=== PATIENT | male | born 1950 | race Caucasian/White ===

== ENCOUNTER 2016-10-27 11:59 | Outpatient (CLI) | payer MEDICARE, MEDICAID ==
[2016-10-27 17:42] LABS: BILIRUBIN,URINE NEGATIVE (NEGATIVE); PH,URINE 7.5 PH (5.0-7.5)
[2016-10-27 17:59] LABS: UR CULTURE IF IND INDICATED; WBC,URINE >25 /HPF (0-3)
== END 2016-10-27 12:00 ==
LOC: LAB.R 11:59
PROVIDERS: ATTEND Nurse Practitioner Family
DX: N10 Acute pyelonephritis (principal)
CPT/HCPCS: 81001; 87077; 87086

== ENCOUNTER 2017-01-13 09:03 | Outpatient (CLI) | payer MEDICARE, MEDICAID ==
--- NOTE | 2017-01-13 12:03 | CT Report ---
EXAM CT LUNG SCREEN EXAM DATE: 01/13/2017 10:21 AM. HISTORY: 66-year-old patient with greater than 02-vijf-cedl smoking history, quit in 2007. COMPARISON: Chest CT 01/05/2016. TECHNIQUE: CT examination of the entire thorax without contrast was performed using low-dose techniqu e. Thin section coronal, axial, sagittal and MIP axial images were obtained. In accordance with CT protocol optimization, one or more of the following dose reduction techniques w ere utilized for this exam: automated exposure control, adjustment of mA and/or KV based on patient s ize, or use of iterative reconstructive technique. FINDINGS: Nodules: Right upper lobe: Interval 2 mm solid (34/4). Right middle lobe: None. Right lower lobe: None. Left upper lobe: None. Left lower lobe: None. Emphysema: Minimal. Pleura: Unremarkable. Thoracic Aorta: No aneurysm. Mediastinum: No mass or adenopathy. Normal heart size without pericardial effusion. Coronary Calcifications: Moderately severe. Other Findings: Stable mild bronchial wall thickening and mild bilateral lower lobe cylindrical bronc hiectasis. Paraspinous scarring right lower lobe. IMPRESSION: Lung-RADS ASSESSMENT CATEGORY: 2 - Benign appearance or behavior. Probability of malignancy: Less diya n 1%. RECOMMENDATION: Continue annual screening with LDCT per LungRADS guidelines. [facility] Referring Provider Line: [phone] SITE ID: [id number]
== END 2017-01-13 09:04 | disposition home or self-care (01) ==
LOC: DI 09:03
PROVIDERS: ATTEND Nurse Practitioner Family
DX: Z12.2 Encounter for screening for malignant neoplasm of respiratory organs (principal); Z87.891 Personal history of nicotine dependence

== ENCOUNTER 2017-01-24 07:51 | Outpatient (CLI) | payer MEDICARE, MEDICAID ==
[2017-01-24 12:28] LABS: PSA FREE 0.26 ng/mL (0.16-2.81); PSA TOTAL 2.45 ng/mL (0.000-2.000)
== END 2017-01-24 07:52 | disposition home or self-care (01) ==
LOC: LAB.F 07:51
PROVIDERS: ATTEND Family Medicine
DX: N40.0 Benign prostatic hyperplasia without lower urinary tract symptoms (principal)
CPT/HCPCS: 36415; 84154

== ENCOUNTER 2017-09-30 08:34 | Outpatient (CLI) | payer MEDICARE, MEDICAID ==
--- NOTE | 2017-09-30 11:47 | MRI Report ---
EXAM: RIGHT ANKLE/HINDFOOT MRI WITHOUT CONTRAST EXAM DATE: 09/30/2017 09:32 AM. CLINICAL HISTORY: Chronic right ankle pain. COMPARISON: None. TECHNIQUE: Multiplanar, multisequence T1-weighted and fluid-sensitive sequences of the ankle/hindfoot without contrast. Other: None. FINDINGS: Bones: No fractures or subluxations. No marrow edema. No bone lesions. Articular Cartilage: Unremarkable. Ligaments: The tibiofibular ligaments appear intact. The anterior talofibular and calcaneofibular lig aments appear thinned suggesting prior high-grade partial-thickness tear. The deep and superficial de ltoid and spring ligaments are intact. Anterior Tendons: The tibialis anterior, extensor hallucis longus, and extensor digitorum longus tend ons are unremarkable. Medial Tendons: The tibialis posterior, flexor digitorum longus, and flexor hallucis longus tendons a re unremarkable. Lateral Tendons: The peroneus brevis and longus are unremarkable. Achilles Tendon: The Achilles tendon is unremarkable. Musculature: No edema or fatty atrophy. Other: There is a small ankle joint effusion. The contents of the sinus tarsi and tarsal tunnel are u nremarkable. No plantar fasciitis. There is a 1 cm diameter cyst dorsal to the first naviculocuneifor m joint. IMPRESSION: 1. Small ankle joint effusion. 2. No visible fracture. 3. Probable prior partial-thickness tears of the anterior talofibular and calcaneofibular ligaments. 4. Small cyst dorsal to the first naviculocuneiform joint. [facility] MUSCULOSKELETAL RADIOLOGY SECTION Referring Provider Line: [phone] SITE ID: [id number]
== END 2017-09-30 08:35 | disposition home or self-care (01) ==
LOC: DI 08:34
PROVIDERS: ATTEND Podiatrist
DX: M25.571 Pain in right ankle and joints of right foot (principal); M25.471 Effusion, right ankle; M25.871 Other specified joint disorders, right ankle and foot

== ENCOUNTER 2018-10-13 11:35 | Outpatient (CLI) | payer MEDICARE, MEDICAID ==
[2018-10-13 17:33] LABS: CALCIUM 9.2 mg/dL (8.5-10.3); CREATININE 0.9 mg/dL (0.6-1.2)
== END 2018-10-13 11:36 | disposition home or self-care (01) ==
LOC: LAB.F 11:35
PROVIDERS: ATTEND Internal Medicine
DX: M54.16 Radiculopathy, lumbar region (principal)
CPT/HCPCS: 36415; 80048

== ENCOUNTER 2018-10-23 07:47 | Outpatient (CLI) | payer MEDICARE, MEDICAID ==
[2018-10-23] MEDS ORDERED: GADOBUTROL 15 MMOL/15 ML VIAL ONE (08:47)
[2018-10-23] MEDS ORDERED: GADOBUTROL 15 MMOL/15 ML VIAL IV ONE ×2 (08:57)
--- NOTE | 2018-10-23 18:18 | MRI Report ---
Reason: LUMBAR RADICULOPATHY,RIGHT Procedure Date: 10/23/2018 Accession Number: [id number] / [id number] Procedure: MRI - Lumbar Spine W/WO CPT Code: FULL RESULT: EXAM: MRI LUMBAR SPINE WITHOUT AND WITH CONTRAST EXAM DATE: 10/23/2018 09:05 AM. CLINICAL HISTORY: Lumbar radiculopathy, right. COMPARISONS: None. TECHNIQUE: Multiplanar, multisequence T1-weighted and fluid-sensitive sequences of the lumbar spine from T12 to S1 before and after administration of intravenous contrast. Other: None. IV contrast: 12 cc Gadavist. FINDINGS: Numbering assumes 5 [id number]-[id number] lumbar type vertebral bodies. No suspicious marrow replacement is identified in the lumbar vertebral bodies. No abnormal signal or enhancement is seen in the conus medullaris. No abnormal enhancement is seen in the lumbar disk spaces. Chronic vertebral body height loss is present anteriorly at T12 and L1 without marrow edema. Congenitally shallow central canal is noted. Slight dorsal epidural lipomatosis is present. L1-L2: No posterior disk protrusion. L2-L3: A minimal posterior disk protrusion is seen. There is a shallow foraminal protrusion bilaterally much greater on the left relative to the right. Mild left foraminal stenosis is present. There is right foraminal narrowing. Superior lateral recess stenosis is present. Central canal measures 7 mm. L3-L4: A posterolateral and proximal foraminal protrusion is seen bilaterally, greater on the left relative to the right. Mild left foraminal stenosis. Right foraminal narrowing is seen. Superior lateral recess stenosis is seen bilaterally. Central canal measures 7 mm. L4-L5: No posterior disk protrusion. No foraminal stenosis. Superior lateral recess stenosis is seen bilaterally. There is relative central canal narrowing without overt central canal stenosis. L5-S1: No posterior disk protrusion. No stenosis. Facet/ligamentum flavum hypertrophy is seen throughout the lumbar spine, greatest in the mid and upper lumbar spine. IMPRESSION: 1. 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 2. Facet/ligamentum flavum hypertrophy and degenerative disk disease results in mild to moderate central canal stenosis at L2-L3 and at L3-L4. There is bilateral superior lateral recess stenosis at these levels. 3. Superior lateral recess stenosis is seen at L4-L5. 4. Foraminal stenosis is seen on the left at L2-L3 and L3-L4. Comment: The following findings are so common in adults without low back pain that while we report their presence, they must be interpreted with caution and in the context of the clinical situation. (Reference Poneck et al, Spine 2001) Prevalence of findings in patients without low back pain: Disk degeneration (any evidence): 92% Disk desiccation/T2 signal loss: 83% Disk height loss: 56% Disk bulge: 64% Disk protrusion: 32% Annular tear/high intensity zone: 38% [facility]
== END 2018-10-23 07:48 | disposition home or self-care (01) ==
LOC: DI 07:47
PROVIDERS: ATTEND Internal Medicine
DX: M51.36 Other intervertebral disc degeneration, lumbar region (principal); M48.061 Spinal stenosis, lumbar region without neurogenic claudication; M47.816 Spondylosis without myelopathy or radiculopathy, lumbar region; M51.26 Other intervertebral disc displacement, lumbar region
CPT/HCPCS: 72158; A9585

== ENCOUNTER 2019-02-13 07:00 | Outpatient (CLI) | payer MEDICARE, MEDICAID | END 2019-02-13 23:59 | disposition home or self-care (01) | LOC: LAB.R 07:00 | PROVIDERS: ATTEND Registered Nurse | DX: N30.90 Cystitis, unspecified without hematuria (principal) | CPT/HCPCS: 87086; 87181 ==

== ENCOUNTER 2019-02-16 10:52 | Emergency (ER) | payer MEDICARE, MEDICAID ==
[2019-02-16 11:51] LABS: BASOPHILS # (AUTO) 0.1 10^3/uL (0.0-0.1); BASOPHILS % (AUTO) 0.6 %; EOSINOPHILS # (AUTO) 0.4 10^3/uL (0.0-0.7); EOSINOPHILS % (AUTO) 5.2 %; HGB - HEMOGLOBIN 14.7 g/dL (14.0-18.0); LYMPHOCYTES # (AUTO) 1.2 10^3/uL (1.5-3.5); LYMPHOCYTES % (AUTO) 14.7 %; MEAN CORPUSCULAR HEMOGLOBIN 29.7 pg (27.0-31.0); MEAN CORPUSCULAR VOLUME 92.9 fL (80.0-94.0); MEAN PLATELET VOLUME 9.6 fL (7.4-11.4); MONOCYTES # (AUTO) 0.8 10^3/uL (0.0-1.0); MONOCYTES % (AUTO) 9.4 %; NEUTROPHILS # (AUTO) 5.6 10^3/uL (1.5-6.6); NEUTROPHILS % (AUTO) 69.4 %; PLT - PLATELET COUNT 264 10^3/uL (130-450); RED BLOOD COUNT 4.95 10^6/uL (4.70-6.10); RED CELL DISTRIBUTION WIDTH 11.9 % (12.0-15.0); WHITE BLOOD COUNT 8.1 x10^3/uL (4.8-10.8)
[2019-02-16 12:01] LABS: BILIRUBIN,URINE NEGATIVE (NEGATIVE); GLUCOSE, URINE (UA) NEGATIVE (NEGATIVE); KETONES,URINE (UA) NEGATIVE (NEGATIVE); LEUKOCYTE ESTERASE, URINE NEGATIVE (NEGATIVE); NITRITE,URINE POSITIVE (NEGATIVE); OCCULT BLOOD,URINE NEGATIVE (NEGATIVE); PROTEIN,URINE NEGATIVE (NEGATIVE); UROBILINOGEN,URINE 0.2 (NORMAL) E.U./dL (NORMAL)
[2019-02-16 12:07] LABS: ALBUMIN/GLOBULIN RATIO 1.1 (1.0-2.2); BILIRUBIN,TOTAL 0.8 mg/dL (0.2-1.0); CALCIUM 9.9 mg/dL (8.5-10.3); CREATININE 1.3 mg/dL (0.6-1.2); TOTAL PROTEIN 7.6 g/dL (6.7-8.2)
[2019-02-16 12:10] LABS: CLARITY,URINE CLEAR (CLEAR)
[2019-02-16 12:17] LABS: BACTERIA,URINE Rare /HPF (None Seen); RBC,URINE 0-5 /HPF (0-5); SQUAMOUS EPITHELIAL CELL,UR RARE Squamous (<= Few)
--- NOTE | 2019-02-16 13:45 | ED Physician Documentation ---
History of Present Illness - Stated complaint Stated Complaint: LOW BACK PX - Chief complaint Chief Complaint: Abd Pain - Additonal information Additional information: This is a 68-year-old male who presents with inability to urinate. Patient states that he was diagnosed with a urinary tract infection and was started on Bactrim around a week ago, ever he has had some difficulty urinating which is worsened over the last 3 days. He states that he is only able to be a dribble for the last 1.5 days. He now feels like his abdomen is distended and he is quite uncomfortable. No fever or chills. He has never needed a catheter in the past, has not obviously been diagnosed with prostate issues but he is on tamsulosin. Review of Systems Constitutional: denies: Fever Cardiac: denies: Chest pain / pressure GI: reports: Abdominal Pain : reports: Dysuria Skin: denies: Rash Neurologic: denies: Generalized weakness Immunocompromised: denies: Immunocompromised PD PAST MEDICAL HISTORY - Past Medical History Cardiovascular: Coronary artery disease - Past Surgical History Past Surgical History: Yes Cardiovascular: Coronary stent Neuro: Craniotomy - Present Medications Home Medications: Ambulatory Orders Medication Instructions Recorded Confirmed Ibuprofen [Motrin] 800 mg PO Q8H PRN #30 tablet 11/08/12 Metoprolol Tartrate [Lopressor] 25 mg PO BID #60 tablet 11/08/12 Ciprofloxacin HCl [Cipro] 500 mg PO BID #14 tablet 02/16/19 Phenazopyridine HCl [Pyridium] 200 mg PO TID PRN #6 tablet 02/16/19 - Allergies Allergies/Adverse Reactions: Allergies Allergy/AdvReac Type Severity Reaction Status Date / Time Penicillins Allergy Severe Respiratory Verified 02/16/19 10:57 - Social History Does the pt smoke?: No Smoking Status: Never smoker Does the pt drink ETOH?: Yes Does the pt have substance abuse?: No PD ED PE NORMAL - Vitals Vital signs reviewed: Yes - General General: Alert and oriented X 3, No acute distress - HEENT HEENT: PERRL - Neck Neck: Supple, no meningeal sign - Cardiac Cardiac: RRR - Respiratory Respiratory: Clear bilaterally - Abdomen Abdomen: Soft, Other (Suprapubic distention, tender to palpation in this area, no upper quadrant distention.) - Male Male : Other (Normal-appearing circumcised penis, no tenderness or lesions, scrotum is nontender and normal in appearance.) - Derm Derm: Warm and dry - Extremities Extremities: No deformity - Neuro Neuro: Alert and oriented X 3 - Psych Psych: Normal mood, Normal affect Results - Vitals Vitals: Vital Signs - 24 hr 02/16/19 02/16/19 10:55 13:47 Temperature 36.4 C L 36.7 C Heart Rate 85 87 Respiratory 20 17 Rate Blood Pressure 98/51 L 118/66 O2 Saturation 97 100 Oxygen O2 Source Room air - Labs Labs: Laboratory Tests 02/16/19 02/16/19 02/16/19 11:41 11:45 11:45 WBC 8.1 RBC 4.95 Hgb 14.7 Hct 46.0 MCV 92.9 MCH 29.7 MCHC 32.0 RDW 11.9 L Plt Count 264 MPV 9.6 Neut # (Auto) 5.6 Lymph # (Auto) 1.2 L [place] # (Auto) 0.8 Eos # (Auto) 0.4 Baso # (Auto) 0.1 Absolute Nucleated RBC 0.00 Nucleated RBC % 0.0 Sodium 137 Potassium 4.8 Chloride 99 L Carbon Dioxide 29 Anion Gap 9.0 BUN 15 Creatinine 1.3 H Estimated GFR (MDRD) 55 L Glucose 131 H Calcium 9.9 Total Bilirubin 0.8 AST 23 ALT 31 Alkaline Phosphatase 64 Total Protein 7.6 Albumin 4.0 Globulin 3.6 Albumin/Globulin Ratio 1.1 Lipase 27 Urine Color YELLOW Urine Clarity CLEAR Urine pH 6.0 Ur Specific [place] 1.010 Urine Protein NEGATIVE Urine Glucose (UA) NEGATIVE Urine Ketones NEGATIVE Urine Occult Blood NEGATIVE Urine Nitrite POSITIVE H Urine Bilirubin NEGATIVE Urine Urobilinogen 0.2 (NORMAL) Ur Leukocyte Esterase NEGATIVE Urine RBC 0-5 Urine WBC 4-5 Ur Squamous Epith Cells RARE Squamous Urine Bacteria Rare Ur Microscopic Review INDICATED Urine Culture Comments INDICATED PD MEDICAL DECISION MAKING - ED course Complexity details: considered differential (UTI, urinary retention, pyelonephritis) ED course: On exam patient has suprapubic fullness and some suprapubic discomfort, bladder scan shows greater than 900 ml. Given patient inability urinate, he appears to have acute urinary retention, catheter was placed with return of over 1 L of rosetta urine. This urine is nitrite positive, he is on Bactrim, and this is likely an appropriate choice, Likely the lack of resolution of his symptoms are secondary to his retention, but patient felt strongly that he wanted to change in antibiotics as he felt that it was ineffective. He has anaphylactic penicillin allergy, I discussed options with him, and we elected to start ciprofloxacin After discussing the black box warnings with him. I also discussed with him that his creatinine is mildly elevated And he will need to have this rechecked with his physician. Patient is feeling well after catheter placement, and his abdomen is benign, I discussed that he is to follow-up in a week with his primary care provider or urologist for a voiding trial, that he should take his antibiotic until that time, and he should continue to take his tamsulosin. I discussed return precautions with the patient including abdominal pain, fever, or other concerning symptoms, he agreed to this plan and was discharged home Departure - Departure Disposition: 01 Home, Self Care Clinical Impression: Acute urinary retention Condition: Good Instructions: ED Retention Urinary Male, ED UTI Cystitis Male Follow-Up: Dima Mata MD [Primary Care Provider] - Within 1 week Prescriptions: Ciprofloxacin HCl [Cipro] 500 mg PO BID #14 tablet Phenazopyridine HCl [Pyridium] 200 mg PO TID PRN #6 tablet PRN Reason: dysuria Comments: You were seen today because you cannot empty your bladder. You seem to have a urinary tract infection, you likely also have an enlarged prostate. Please continue taking your tamsulosin, and the antibiotic as prescribed. Please follow-up with your primary care provider within 1 week, or urologist. If you develop worsening symptoms or if you are unable to pass urine to the catheter return to the emergency department. Discharge Date/Time: 02/16/19 14:08
[2019-02-16 13:47] VITALS: BP 118/66
== END 2019-02-16 14:08 | disposition home or self-care (01) ==
LOC: ED 10:52
DX: R33.9 Retention of urine, unspecified (principal); N39.0 Urinary tract infection, site not specified; R79.89 Other specified abnormal findings of blood chemistry; Z88.0 Allergy status to penicillin; Z79.899 Other long term (current) drug therapy
CPT/HCPCS: 36415; 51702; 80053; 81001; 81003; 83690; 85025; 87086; 99283; 99284

== ENCOUNTER 2019-02-20 10:11 | Emergency (ER) | payer MEDICARE, MEDICAID ==
[2019-02-20 10:19] VITALS: BP 136/63
--- NOTE | 2019-02-22 15:28 | ED Physician Documentation ---
History of Present Illness - Stated complaint Stated Complaint: CATH REMOVAL - Chief complaint Chief Complaint: General - History obtained from History obtained from: Patient - History of Present Illness Timing: Today - Additonal information Additional information: 68 y/o male with catheter in place is requesting we remove his catheter Review of Systems Constitutional: denies: Fever Respiratory: denies: Cough GI: denies: Vomiting PD PAST MEDICAL HISTORY - Past Medical History Cardiovascular: Coronary artery disease - Past Surgical History Past Surgical History: Yes Cardiovascular: Coronary stent Neuro: Craniotomy - Present Medications Home Medications: Ambulatory Orders Medication Instructions Recorded Confirmed Ibuprofen [Motrin] 800 mg PO Q8H PRN #30 tablet 11/08/12 Metoprolol Tartrate [Lopressor] 25 mg PO BID #60 tablet 11/08/12 Ciprofloxacin HCl [Cipro] 500 mg PO BID #14 tablet 02/16/19 Phenazopyridine HCl [Pyridium] 200 mg PO TID PRN #6 tablet 02/16/19 - Allergies Allergies/Adverse Reactions: Allergies Allergy/AdvReac Type Severity Reaction Status Date / Time Penicillins Allergy Severe Respiratory Verified 02/16/19 10:57 - Social History Does the pt smoke?: No Smoking Status: Never smoker Does the pt drink ETOH?: Yes Does the pt have substance abuse?: No PD ED PE NORMAL - Vitals Vital signs reviewed: Yes (hypertensive ) - General General: Alert and oriented X 3, Well developed/nourished, Other (The patient appears uncomfortable and anxious) - HEENT HEENT: Atraumatic, PERRL, EOMI - Respiratory Respiratory: No respiratory distress - Derm Derm: Normal color, Warm and dry, No rash - Extremities Extremities: No deformity, No edema - Neuro Neuro: Alert and oriented X 3, humanities division chair 2-12 intact, No motor deficit, No sensory deficit, Normal speech Eye Opening: Spontaneous Motor: Obeys Commands Verbal: Oriented GCS Score: 15 - Psych Psych: Normal mood, Normal affect Results - Vitals Vitals: Oxygen O2 Source Room air PD MEDICAL DECISION MAKING - ED course Complexity details: considered differential, d/w patient ED course: 68-year-old male with a history of recent urinary retention presents to the emerge department wanting to have his catheter removed. We were able to accommodate him by removing the catheter and his anticipated course was to wait to urinate and the patient eloped from the emergency department. Departure - Departure Disposition: 01 Home, Self Care Clinical Impression: Encounter for [place] catheter removal Condition: Good Discharge Date/Time: 02/20/19 12:30
== END 2019-02-20 12:30 | disposition home or self-care (01) ==
LOC: ED 10:11
DX: Z46.6 Encounter for fitting and adjustment of urinary device (principal); Z53.20 Procedure and treatment not carried out because of patient's decision for unspecified reasons
CPT/HCPCS: 99282

== ENCOUNTER 2019-10-30 07:12 | Outpatient (CLI) | payer MEDICARE, MEDICAID ==
[2019-10-30 14:55] LABS: BASOPHILS # (AUTO) 0.1 10^3/uL (0.0-0.1); EOSINOPHILS # (AUTO) 0.4 10^3/uL (0.0-0.7); EOSINOPHILS % (AUTO) 5.9 %; HGB - HEMOGLOBIN 15.4 g/dL (14.0-18.0); LYMPHOCYTES # (AUTO) 1.8 10^3/uL (1.5-3.5); LYMPHOCYTES % (AUTO) 26.2 %; MEAN CORPUSCULAR HEMOGLOBIN 30.2 pg (27.0-31.0); MEAN CORPUSCULAR HGB CONC 31.6 g/dL (32.0-36.0); MEAN CORPUSCULAR VOLUME 95.7 fL (80.0-94.0); MEAN PLATELET VOLUME 10.7 fL (7.4-11.4); MONOCYTES # (AUTO) 0.7 10^3/uL (0.0-1.0); MONOCYTES % (AUTO) 10.7 %; NEUTROPHILS # (AUTO) 3.8 10^3/uL (1.5-6.6); NEUTROPHILS % (AUTO) 55.8 %; PLT - PLATELET COUNT 241 10^3/uL (130-450); RED CELL DISTRIBUTION WIDTH 12.1 % (12.0-15.0); WHITE BLOOD COUNT 6.8 x10^3/uL (4.8-10.8)
[2019-10-30 15:18] LABS: ALBUMIN 4.1 g/dL (3.2-5.5); ALBUMIN/GLOBULIN RATIO 1.4 (1.0-2.2); ALKALINE PHOSPHATASE 49 IU/L (42-121); ALT ALANINE AMINOTRANSFERASE 22 IU/L (10-60); AST ASPARTATE AMINOTRANSFERASE 20 IU/L (10-42); BILIRUBIN,TOTAL 0.8 mg/dL (0.2-1.0); BUN - BLOOD UREA NITROGEN 22 mg/dL (6-20); CALCIUM 9.5 mg/dL (8.5-10.3); CARBON DIOXIDE - CO2 30 mmol/L (21-32); CHLORIDE 107 mmol/L (101-111); CHOL/HDL RATIO 6.7 (<5.0); CHOLESTEROL 273 mg/dL; GLUCOSE 119 mg/dL (70-100); HDL CHOLESTEROL 41 mg/dL; LDL CHOLESTEROL,CALCULATED 200 mg/dL; LDL/HDL RATIO 4.9 (<3.6); SODIUM 140 mmol/L (135-145); TOTAL PROTEIN 7.1 g/dL (6.7-8.2); VLDL CHOLESTEROL 32 mg/dL
== END 2019-10-30 07:13 | disposition home or self-care (01) ==
LOC: LAB.S 07:12
PROVIDERS: ATTEND Registered Nurse
DX: K21.9 Gastro-esophageal reflux disease without esophagitis (principal); N40.1 Benign prostatic hyperplasia with lower urinary tract symptoms; N13.8 Other obstructive and reflux uropathy; I10 Essential (primary) hypertension; I25.10 Atherosclerotic heart disease of native coronary artery without angina pectoris
CPT/HCPCS: 36415; 80053; 80061; 83721; 84153; 84443; 85025

== ENCOUNTER 2020-07-05 09:05 | Outpatient (CLI) | payer MEDICARE, MEDICAID ==
[2020-07-05 15:02] LABS: BASOPHILS # (AUTO) 0.1 10^3/uL (0.0-0.1); BASOPHILS % (AUTO) 1.3 %; EOSINOPHILS # (AUTO) 0.4 10^3/uL (0.0-0.7); EOSINOPHILS % (AUTO) 5.3 %; HCT - HEMATOCRIT 47.3 % (42.0-52.0); HGB - HEMOGLOBIN 14.6 g/dL (14.0-18.0); LYMPHOCYTES # (AUTO) 1.8 10^3/uL (1.5-3.5); LYMPHOCYTES % (AUTO) 26.8 %; MEAN CORPUSCULAR HEMOGLOBIN 29.4 pg (27.0-31.0); MEAN CORPUSCULAR HGB CONC 30.9 g/dL (32.0-36.0); MEAN CORPUSCULAR VOLUME 95.4 fL (80.0-94.0); MEAN PLATELET VOLUME 11.1 fL (7.4-11.4); MONOCYTES # (AUTO) 0.7 10^3/uL (0.0-1.0); MONOCYTES % (AUTO) 10.7 %; NEUTROPHILS # (AUTO) 3.8 10^3/uL (1.5-6.6); NEUTROPHILS % (AUTO) 55.6 %; PLT - PLATELET COUNT 254 10^3/uL (130-450); RED BLOOD COUNT 4.96 10^6/uL (4.70-6.10); RED CELL DISTRIBUTION WIDTH 12.2 % (12.0-15.0); WHITE BLOOD COUNT 6.8 x10^3/uL (4.8-10.8)
[2020-07-05 15:30] LABS: ALBUMIN/GLOBULIN RATIO 1.2 (1.0-2.2); ALKALINE PHOSPHATASE 50 IU/L (42-121); ALT ALANINE AMINOTRANSFERASE 21 IU/L (10-60); AST ASPARTATE AMINOTRANSFERASE 17 IU/L (10-42); BILIRUBIN,TOTAL 0.7 mg/dL (0.2-1.0); BUN - BLOOD UREA NITROGEN 14 mg/dL (6-20); CALCIUM 9.3 mg/dL (8.5-10.3); CARBON DIOXIDE - CO2 30 mmol/L (21-32); CHLORIDE 100 mmol/L (101-111); CHOLESTEROL 258 mg/dL; GFR - MDRD 73 (>89); GLUCOSE 121 mg/dL (70-100); HDL CHOLESTEROL 43 mg/dL; LDL CHOLESTEROL,CALCULATED 182 mg/dL; LDL/HDL RATIO 4.2 (<3.6); POTASSIUM 4.1 mmol/L (3.5-5.0); SODIUM 138 mmol/L (135-145); TOTAL PROTEIN 7.4 g/dL (6.7-8.2); TRIGLYCERIDES 164 mg/dL; VLDL CHOLESTEROL 33 mg/dL
== END 2020-07-05 09:06 | disposition home or self-care (01) ==
LOC: LAB.S 09:05
PROVIDERS: ATTEND Internal Medicine
DX: I10 Essential (primary) hypertension (principal); E78.5 Hyperlipidemia, unspecified; Z12.5 Encounter for screening for malignant neoplasm of prostate
CPT/HCPCS: 36415; 80053; 80061; 85025; G0103; 83721; 84153

== ENCOUNTER 2020-07-07 14:56 | Outpatient (CLI) | payer MEDICARE, MEDICAID ==
--- NOTE | 2020-07-07 15:33 | XRAY Report ---
PROCEDURE: Lumbar Spine 2 View INDICATIONS: LUMBAR RADICULOPATHY,RIGHT TECHNIQUE: 2 views of the lumbar spine were acquired. COMPARISON: None. FINDINGS: Bones: 5 [id number] vertebrae are present. There is normal bony alignment. No vertebral body compression fractures. No suspicious bony lesions. Multilevel disc space narrowing and endplate ost eophyte formation. Facet hypertrophy throughout the mid and lower lumbar spine. Soft tissues: Overlying bowel gas pattern is normal. No suspicious soft tissue calcifications. IMPRESSION: Multilevel degenerative disc and facet disease. No acute fracture. No osseous lesion. If symptoms and/or clinical suspicion for pathology continue, further assessment with repeat plain film s, or advanced imaging (e.g., CT, MRI, or bone scan) is recommended for further assessment. Reviewed by: Kingsley Rendon MD on 07/07/2020 3:31 PM PDT Approved by: Kingsley Rendon MD on 07/07/2020 3:31 PM PDT Station ID: [id number]
--- NOTE | 2020-07-07 15:33 | XRAY Report ---
PROCEDURE: Thoracic Spine 2 View INDICATIONS: THORACIC BACK PAIN TECHNIQUE: 3 views of the thoracic spine were acquired. COMPARISON: None. FINDINGS: Bones: No fractures or dislocations. No suspicious bony lesions. Visualized ribs are intact. Multil evel disc space narrowing and endplate osteophyte formation, indicating degenerative disc disease. So ft tissues: No paravertebral stripe thickening. IMPRESSION: Multilevel degenerative disc disease. No acute fracture. No osseous lesion. If symptoms and/or clinic al suspicion for pathology continue, further assessment with repeat plain films, or advanced imaging (e.g., CT, MRI, or bone scan) is recommended for further assessment. Reviewed by: Kingsley Rendon MD on 07/07/2020 3:32 PM PDT Approved by: Kingsley Rendon MD on 07/07/2020 3:32 PM PDT Station ID: [id number]
== END 2020-07-07 14:57 | disposition home or self-care (01) ==
LOC: DI.S 14:56
PROVIDERS: ATTEND Internal Medicine
DX: M51.34 Other intervertebral disc degeneration, thoracic region (principal); M51.36 Other intervertebral disc degeneration, lumbar region; M47.816 Spondylosis without myelopathy or radiculopathy, lumbar region

== ENCOUNTER 2020-08-08 07:13 | Outpatient (CLI) | payer MEDICARE, MEDICAID ==
--- NOTE | 2020-08-08 11:58 | Ultrasound Report ---
PROCEDURE: Abdomen Complete INDICATIONS: ABDOMINAL PAIN TECHNIQUE: Real-time scanning was performed of the abdominal and retroperitoneal organs, with image documentatio n. COMPARISON: 01/13/[address] FINDINGS: Liver: Liver is enlarged at 19.3 cm craniocaudad in size and homogeneous in echotexture, diffusely h yperechoic consistent with fatty infiltration. There appears to be focal fatty sparing at the posteri or left hepatic lobe measuring up to. Gallbladder: Appears normal. Biliary ducts: Intrahepatic bile ducts are non-dilated. Extrahepatic bile duct caliber measures 4.0 mm. Normal is 6-7 mm or less in diameter, or 10 mm or less post-cholecystectomy. Pancreas: Visualized portions of the pancreas are sonographically normal. Spleen: Spleen is normal in size and homogeneous in echotexture. Kidneys: Kidneys are normal in size and echotexture. Right kidney measures 10.4 cm long; left kidne y measures 12.4 cm long. No hydronephrosis or right-sided nephrolithiasis. There is a 5 x 5 x 4 mm hyperechoic focus at the left kidney collecting system margin, nonobstructive. No solid masses. Aorta: Visualized aorta is normal in caliber at less than 3 cm. Iliacs: Proximal common iliac arteries are normal in caliber at less than 2.5 cm. IVC: Intrahepatic inferior vena cava is patent. Miscellaneous: No free abdominal fluid. IMPRESSION: Prominent fatty infiltration throughout the liver with focal sparing causing a region of reduced hepa tic echotexture as noted. 2 liver cyst, simple in appearance. No biliary distention found. Suspect 5 mm left kidney nonobstructing calculus as hyperechoic structure. Reviewed by: Joseph Ferrell MD on 08/08/2020 11:56 AM PDT Approved by: Joseph Ferrell MD on 08/08/2020 11:56 AM PDT Station ID: [id number]
== END 2020-08-08 07:14 | disposition home or self-care (01) ==
LOC: DI 07:13
PROVIDERS: ATTEND Internal Medicine
DX: K76.0 Fatty (change of) liver, not elsewhere classified (principal); K76.89 Other specified diseases of liver; R10.9 Unspecified abdominal pain

== ENCOUNTER 2020-09-24 14:42 | Outpatient (CLI) | payer MEDICARE, MEDICAID ==
[2020-09-24] MEDS ORDERED: IOVERSOL 320 100 ML VIAL IVP ONE (14:58)
[2020-09-24] MEDS ORDERED: IOPAMIDOL-300 50 ML VIAL ONE (14:58)
[2020-09-24 15:12] LABS: CREATININE 1.1 mg/dL (0.6-1.2)
[2020-09-24] MEDS: IOVERSOL 320 100 ML VIAL IVP ONE (21:28)
[2020-09-24] MEDS: IOPAMIDOL-300 50 ML VIAL PO ONE (21:29)
--- NOTE | 2020-09-25 09:00 | CT Report ---
PROCEDURE: Abdomen/Pelvis W INDICATIONS: ABDOMINAL PAIN, FATTY LIVER CONTRAST: IV CONTRAST: Optiray 320 ml: 100 PO CONTRAST: Isovue 300 ml50 TECHNIQUE: After the administration of IV and oral contrast, 5 mm thick sections acquired from the diaphragms to the symphysis. 5 mm thick coronal and sagittal reformats were acquired. For radiation dose reducti on, the following was used: automated exposure control, adjustment of mA and/or kV according to nicolasa ent size. COMPARISON: Ultrasound dated 08/08/2020. Chest CT dated 01/13/2017. FINDINGS: Image quality: Excellent. ABDOMEN: Lung bases: There is an incompletely visualized mass within the lateral segment right middle lobe pos teriorly measuring at least 47 mm, new compared to 01/13/2017. Heart size is normal. Solid organs: Liver and spleen are normal in size. There are a few indeterminate low-density foci wi thin the right and left hepatic lobe, largest of which is in the left hepatic lobe medial segment fermin suring 14 mm. Gallbladder is contracted and otherwise within normal limits Biliary system is non dil ated. Pancreas enhances normally. There is a new, 15 mm diameter nodule within the posterior aspect of the left adrenal gland. No right adrenal nodules. Kidneys demonstrate normal size and enhancemen t, without hydronephrosis. Peritoneum and bowel: Bowel loops demonstrate normal wall thickness and caliber. Diverticulosis of t he descending and sigmoid colon. No evidence of acute diverticulitis. Normal appendix. No free fluid or air. Nodes and vessels: No retroperitoneal or mesenteric adenopathy by size criteria. Aorta and inferior vena cava are normal in size. Miscellaneous: No ventral hernias. PELVIS: Genitourinary: Bladder wall thickness is normal. Miscellaneous: No inguinal hernias or adenopathy. Bones: No suspicious bony lesions. No vertebral body compression fractures. IMPRESSION: 1. New, malignant right middle lobe pulmonary mass. Initial further assessment with chest CT with int ravenous contrast is recommended. 2. 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 PET/CT examination is recommended for further assessment. 3. Indeterminate hepatic lesions. Liver protocol MRI with and without intravenous contrast is recomme nded for initial assessment. Reviewed by: Kingsley Rendon MD on 09/25/2020 8:59 AM PDT Approved by: Kingsley Rendon MD on 09/25/2020 8:59 AM PDT Station ID: [id number]
== END 2020-09-24 14:43 | disposition home or self-care (01) ==
LOC: LAB 14:42 → DI 14:43
PROVIDERS: ATTEND Internal Medicine
DX: C34.2 Malignant neoplasm of middle lobe, bronchus or lung (principal); E27.9 Disorder of adrenal gland, unspecified; K76.9 Liver disease, unspecified; I10 Essential (primary) hypertension
CPT/HCPCS: 36415; 74177; 82565; Q9967

== ENCOUNTER 2020-10-20 16:35 | Outpatient (CLI) | payer MEDICARE, MEDICAID | END 2020-10-20 16:36 | disposition home or self-care (01) | LOC: COV 16:35 | PROVIDERS: ATTEND Internal Medicine | DX: Z01.812 Encounter for preprocedural laboratory examination (principal); Z20.822 Contact with and (suspected) exposure to COVID-19 ==

== ENCOUNTER 2020-11-18 08:13 | Outpatient (CLI) | payer MEDICARE, MEDICAID ==
[~2020-11-18 08:13] MED LIST: GADOBUTROL 15 MMOL/15 ML VIAL ONE
--- NOTE | 2020-11-18 14:29 | MRI Report ---
PROCEDURE: Brain W/WO INDICATIONS: LUNG CA CONTRAST: IV CONTRAST: Optiray 320 ml: 11 TECHNIQUE: Noncontrast axial T1 spin echo, axial T2 fast spin echo, sagittal and axial FLAIR, coronal T2 fast sp in echo, axial gradient echo, axial diffusion and ADC through the brain. After the administration of contrast, axial and coronal T1 spin echo with fat saturation through the brain. COMPARISON: Partially degraded by motion artifact. FINDINGS: Image quality: Excellent. CSF spaces: Basal cisterns are patent. No extra-axial fluid collections. Ventricles are normal in size and shape. Brain: No midline shift. No intracranial bleeds or masses. Focal region of encephalomalacia involve s the right anterior frontal lobe. No abnormal intracranial enhancement. There is cerebral volume lo ss for age. There is periventricular white matter chronic small vessel ischemic change. The brainst em appears normal. Diffusion-weighted images demonstrate no acute ischemic insults. No chronic isch emic insults. Normal intravascular flow voids are present. Skull and face: Findings suggestive of prior right frontal craniotomy. Calvarial marrow is otherwise normal in signal. Orbits appear normal. Sinuses: Sinuses and mastoids appear clear. IMPRESSION: 1. Postsurgical sequelae. 2. No evidence of malignancy. Reviewed by: Kingsley Rendon MD on 11/18/2020 1:27 PM WILBER Approved by: Kingsley Rendon MD on 11/18/2020 1:27 PM [id number] Station ID: [id number]
[2020-11-18] MEDS ORDERED: GADOBUTROL 15 MMOL/15 ML VIAL IVP ONE (15:58)
== END 2020-11-18 08:14 | disposition home or self-care (01) ==
LOC: DI 08:13
PROVIDERS: ATTEND Internal Medicine Hematology & Oncology
DX: C34.2 Malignant neoplasm of middle lobe, bronchus or lung (principal)
CPT/HCPCS: 70553; A9585

== ENCOUNTER 2020-11-19 09:26 | Day surgery (SDC) | payer MEDICARE, MEDICAID ==
[~2020-11-19 09:26] MED LIST changes: +CLINDAMYCIN 900 MG/50 ML 50 ML IV ONE; -GADOBUTROL 15 MMOL/15 ML VIAL ONE
--- NOTE | 2020-11-19 09:35 | ANESTHESIA ---
Pre-Anesthesia VS, & Labs - Diagnosis small cell lung cancer, neuroendocrine tumor - Procedure port placement Height: 5 ft 8 in - NPO >8 hours Home Medications and Allergies Home Medications: Ambulatory Orders Ondansetron HCl [Zofran] 8 mg PO DAILY 11/14/20 Prochlorperazine [Compazine] 10 mg PO QPM 11/14/20 Aspirin [[place] Aspirin] 81 mg PO DAILY 11/03/20 Atorvastatin [Lipitor] 20 mg PO DAILY PM 11/03/20 Finasteride [Proscar] 5 mg PO DAILY 11/03/20 HYDROcod/ACETAM 5/325 [[place] 5/325] 1 - 2 tablet PO Q6H PRN 11/03/20 Lisinopril [Zestril] 40 mg PO DAILY 11/03/20 Naproxen [Naprosyn] 250 mg PO PRN PRN 11/03/20 Tamsulosin [Flomax] 1 cap PO UD 11/03/20 amLODIPine [Norvasc] 5 mg PO BID 11/03/20 Ondansetron HCl [Zofran] 8 mg PO DAILY 11/14/20 Prochlorperazine [Compazine] 10 mg PO QPM 11/14/20 Allergies/Adverse Reactions: Allergies Allergy/AdvReac Type Severity Reaction Status Date / Time Penicillins Allergy Severe Respiratory Verified 11/03/20 16:51 Anes History & Medical History - Anesthetic History Anesthesia Complications: reports: No previous complications - Medical History Cardiovascular: reports: Coronary artery disease Pulmonary: reports: Other (lung cancer) Gastrointestinal: reports: Colon polyps Urinary: reports: None Musculoskeletal: reports: Osteoarthritis, Chronic back pain Endocrine/Autoimmune: reports: Other (neuroendocrine tumor) Skin: reports: None Smoking Status: Former smoker History of Cancer?: Yes - Surgical History General: reports: Colonoscopy Cardiothoracic: reports: Coronary stent Neurologic: reports: Craniotomy Orthopedic: reports: Carpal Tunnel surgery Exam General: Alert Dental: WNL Mouth Opening: Greater than 4 Fingerbreadths Neck Mobility: Normal Mallampati classification: II Thyromental Distance: greater than 6 cm Respiratory: Lungs clear, Decreased breath sounds Cardiovascular: Regular rate, Normal S1, Normal S2 Plan Anesthesia Type: MAC Consent for Procedure(s) Verified and Reviewed: Yes Code Status: Attempt Resuscitation ASA classification: 3-Severe systemic disease Is this case an emergency?: No
[2020-11-19] MEDS ORDERED: LACTATED RINGERS 1,000 ML IV ONE ×2 (09:36→12:48)
[2020-11-19] MEDS ORDERED: BUPIVACAINE 0.25% PF 30 ML VIAL ONE (09:40)
[2020-11-19] MEDS ORDERED: LIDOCAINE 1% 50 ML MDV ONE (09:40)
[2020-11-19] MEDS ORDERED: fentaNYL 100 MCG/2 ML VIAL ONE (10:34)
[2020-11-19] MEDS ORDERED: PROPOFOL 200 MG/20 ML VIAL IVP ONE (10:35)
--- NOTE | 2020-11-19 11:16 | HISTORY & PHYSICAL EXAMINATION ---
Chief Complaint - Chief Complaint Chief Complaint: lung cancer History of Present Illness - History Obtained From Records Reviewed: yes History obtained from: pt Exam Limitations: none - History of Present Illness HPI Comment/Other: recently diagnosed with right lung cancer. no breathing problems History - Past Medical History Cardiovascular: reports: Coronary artery disease Respiratory: reports: Other (lung cancer) Endocrine/Autoimmune: reports: Other (neuroendocrine tumor) GI: reports: Colon polyps : reports: None HEENT: reports: None Psych: reports: None Musculoskeletal: reports: Osteoarthritis, Chronic back pain Derm: reports: None MRSA Hx?: No - Past Surgical History General: reports: Colonoscopy Ortho: reports: Carpal Tunnel surgery Cardiovascular: reports: Coronary stent Neuro: reports: Craniotomy Meds/Allgy - Home Medications Home Medications: Ambulatory Orders Medication Instructions Recorded Confirmed Metoprolol Tartrate [Lopressor] 25 mg PO BID #60 tablet 11/08/12 11/19/20 Aspirin [[place] Aspirin] 81 mg PO DAILY 11/03/20 11/19/20 Atorvastatin [Lipitor] 20 mg PO DAILY PM 11/03/20 11/19/20 Finasteride [Proscar] 5 mg PO DAILY 11/03/20 11/19/20 HYDROcod/ACETAM 5/325 [[place] 5/325] 1 - 2 tablet PO Q6H PRN 11/03/20 11/19/20 Lisinopril [Zestril] 40 mg PO DAILY 11/03/20 11/19/20 Naproxen [Naprosyn] 250 mg PO PRN PRN 11/03/20 11/19/20 Tamsulosin [Flomax] 1 cap PO UD 11/03/20 11/19/20 amLODIPine [Norvasc] 5 mg PO BID 11/03/20 11/19/20 Ondansetron HCl [Zofran] 8 mg PO DAILY 11/14/20 11/19/20 Prochlorperazine [Compazine] 10 mg PO QPM 11/14/20 11/19/20 - Allergies Allergies/Adverse Reactions: Allergies Allergy/AdvReac Type Severity Reaction Status Date / Time Penicillins Allergy Severe Respiratory Verified 11/03/20 16:51 Review of Systems - Other Findings Other Findings: 10 pt ros as above otherwise unremarkable Exam - Vital Signs Reviewed Vital Signs: Yes Vital Signs: Vital Signs x48h Temp Pulse Resp BP Pulse Ox 11/19/20 09:37 36 C L 78 18 127/59 L 94 - Physical Exam General Appearance: positive: Alert Eyes Bilateral: positive: PERRL, EOMI, No scleral icterus ENT: positive: No signs of dehydration Neck: positive: No JVD Respiratory: positive: No respiratory distress, Breath sounds nml Cardiovascular: positive: Regular rate & rhythm Abdomen: positive: Non-tender, No distention Neurologic/Psychiatric: positive: Oriented x3 Conclusion/Plan - Problem List (1) Lung cancer Conclusion/Plan: plan port placement. parq held and consent obtained
[2020-11-19] MEDS ORDERED: LIDOCAINE 1% 50 ML MDV SUBQ ONE ×2 (12:12)
[2020-11-19] MEDS ORDERED: BUPIVACAINE 0.25% PF 30 ML VIAL SUBQ ONE ×2 (12:13)
--- NOTE | 2020-11-19 12:47 | XRAY Report ---
PROCEDURE: OR Port-A-Cath INDICATIONS: PORT PLACEMENT TECHNIQUE: 2 intraoperative fluoroscopic images of the chest were obtained. COMPARISON: None. FINDINGS: Intraoperative fluoroscopic images of chest shows a left-sided central venous catheter placement. Exa ct position cannot be definitively determined based on the images given. Total fluoroscopy time is 1.4 seconds. IMPRESSION: Fluoroscopy guidance was provided intraoperatively for port placement. Reviewed by: Salvatore Dorsey MD on 11/19/2020 12:46 PM PDT Approved by: Salvatore Dorsey MD on 11/19/2020 12:46 PM PDT Station ID: [id number]
[2020-11-19] MEDS ORDERED: HYDROcod/ACETAM 5/325 MG TABLET PO PRN (12:53)
[2020-11-19] MEDS ORDERED: ONDANSETRON 4 MG/2 ML VIAL IVP PRN (12:56)
[2020-11-19] MEDS ORDERED: NALOXONE 0.4 MG/ML VIAL IVP PRN (12:56)
[2020-11-19] MEDS ORDERED: HYDROmorphone 0.5 MG/0.5 ML SYRINGE IVP PRN (12:56)
[2020-11-19] MEDS ORDERED: fentaNYL 100 MCG/2 ML VIAL IVP PRN (12:56)
[2020-11-19] MEDS ORDERED: MORPHINE 2 MG/ML CARPUJECT IVP PRN (12:56)
[2020-11-19] MEDS ORDERED: ePHEDrine 50 MG/ML VIAL IVP PRN (12:56)
[2020-11-19] MEDS ORDERED: ATROPINE ABBOJECT 1 MG/10 ML SYRINGE IVP PRN (12:56)
--- NOTE | 2020-11-19 12:57 | OPERATIVE REPORT ---
Operative Report - General Procedure Date: 11/19/20 Planned Procedure: left subclavian power port placement Pre-Op Diagnosis: lung cancer Procedure Performed: left subclavian power port placement fluoroscopic guidance Post Op Diagnosis: lung cancer - Procedure Note Primary Surgeon: morelia ferrara Anesthesia Technique: General LMA Pathology: none Estimated Blood Loss (mL): 3 Drain/Tube Type: Other (none) Indications: need for chemotherapy Findings: good flush and flow. tip and lower svc Complications: none - Other Other Information/Narrative: The patient was properly identified brought to the operating room and placed in supine position. Monitored anesthesia care was given as well as IV sedation. A towel roll was placed under the upper back. The patient was prepped and draped in a sterile fashion and given preoperative antibiotics. Local anesthetic was given. The left subclavian vein was easily accessed first pass with a needle. A subcutaneous pocket on the left upper chest was created measuring approximately 2-1/2 cm. Portacatheter tubing was then placed subcutaneous up to the venous access point. The portacatheter tubing was then easily placed with the use of a dilator peel-away sheath. The tubing was aspirated and flushed with saline. Under fluoroscopic guidance the tubing was pulled back to the junction of the atrium and the superior vena cava. The portacatheter aspirated and flushed easily assuring good position. The portacatheter was then cut to size and further assembled. The port was secured to subcutaneous tissue with 2 interrupted 4-0 Prolene sutures. The port again was aspirated and flushed now with heparin. Buried interrupted subdermal 3-0 Vicryl sutures were then placed. Skin was closed with buried interrupted and running 4-0 Monocryl subcuticular suture. Dressing was applied. The patient tolerated the procedure well was awakened and brought to recovery in good condition.
[2020-11-19] MEDS ORDERED: LACTATED RINGERS 1,000 ML IV SCH (13:00)
[2020-11-19] MEDS ORDERED: ONDANSETRON 4 MG/2 ML VIAL ONE (13:03)
--- NOTE | 2020-11-19 13:40 | ANESTHESIA POST OP EVALUATION ---
Anesthesia Post Eval - Post Anesthesia Eval Vitals: Last Vital Signs Temp 36.4 C L 11/19/20 13:15 Pulse 79 11/19/20 13:15 Resp 12 11/19/20 13:15 BP 105/45 L 11/19/20 13:15 Pulse Ox 97 11/19/20 13:15 CV Function Including HR & BP: Stable Pain Control: Satisfactory Nausea & Vomiting: Negative Mental Status: Baseline Respiratory Status: Airway Patent Hydration Status: Satisfactory Anesthesia Complications: None
[2020-11-19 13:45] VITALS: BP 110/65
== END 2020-11-19 09:27 | disposition home or self-care (01) ==
LOC: SDS 09:26
PROVIDERS: ATTEND Surgery
DX: C34.91 Malignant neoplasm of unspecified part of right bronchus or lung (principal); C7A.8 Other malignant neuroendocrine tumors; I25.10 Atherosclerotic heart disease of native coronary artery without angina pectoris; Z87.891 Personal history of nicotine dependence
CPT/HCPCS: 36561; C1788; J7120

== ENCOUNTER 2021-04-02 08:00 | Outpatient (CLI) | payer MEDICARE, MEDICAID ==
--- NOTE | 2021-04-02 15:18 | XRAY Report ---
PROCEDURE: Chest 2 View X-Ray INDICATIONS: CONTUSION OF RIGHT FRONT WALL OF THORAX TECHNIQUE: 2 view(s) of the chest. COMPARISON: 02/09/2019 CT chest FINDINGS: Surgical changes and devices: None. Lungs and pleura: No pleural effusions or pneumothorax. Streaky linear opacity in the right lung bas e representing atelectasis. Possible faint revisualization of a spiculated right middle lobe nodule s een on the most recent comparison CT. Mediastinum: Mediastinal contours are normal. Heart size is normal. Bones and chest wall: No suspicious bony abnormalities. Soft tissues appear unremarkable. IMPRESSION: Airspace abnormalities in the right lung base including possible redemonstration of a spiculated nodu le in the right middle lobe present on 02/09/[address] chest recommended. Reviewed by: Chidi Yi MD on 04/02/2021 3:17 PM PST Approved by: Chidi Yi MD on 04/02/2021 3:17 PM PST Station ID: [id number]
== END 2021-04-02 23:59 | disposition home or self-care (01) ==
LOC: DI.S 08:00
PROVIDERS: ATTEND Physician Assistant
DX: S20.211A Contusion of right front wall of thorax, initial encounter (principal)

== ENCOUNTER 2021-08-10 11:06 | Outpatient (CLI) | payer MEDICARE, MEDICAID ==
--- NOTE | 2021-08-10 15:07 | XRAY Report ---
PROCEDURE: Shoulder 2 View LT INDICATIONS: SHOULDER JINT PAIN,LEFT TECHNIQUE: 3 views of the shoulder were acquired. COMPARISON: None. FINDINGS: Bones: No acute fractures or dislocations. No suspicious bony lesions. Visualized ribs appear inta ct. Moderate to severe joint space narrowing is seen at the glenohumeral joint. Moderate acromioclav icular osteoarthrosis. Soft tissues: No suspicious soft tissue calcifications. Left-sided Port-A-Cath is partially imaged. IMPRESSION: Moderate to severe linear osteoarthrosis. Moderate acromioclavicular osteoarthrosis. Reviewed by: Lenin Medel MD on 08/10/2021 3:06 PM PDT Approved by: Lenin Medel MD on 08/10/2021 3:06 PM PDT Station ID: [id number]
== END 2021-08-10 11:07 | disposition home or self-care (01) ==
LOC: DI 11:06
PROVIDERS: ATTEND Physician Assistant
DX: M19.012 Primary osteoarthritis, left shoulder (principal)

== ENCOUNTER 2021-10-20 08:13 | Day surgery (SDC) | payer MEDICARE, MEDICAID ==
[2021-10-20] MEDS ORDERED: LACTATED RINGERS 1,000 ML IV ONE (08:30)
--- NOTE | 2021-10-20 08:58 | ANESTHESIA ---
Pre-Anesthesia VS, & Labs - Diagnosis hx colon polyps - Procedure colonoscopy Vital Signs: Temp Pulse Resp BP Pulse Ox 36.7 C 73 16 141/88 H 97 10/20/21 08:31 10/20/21 08:31 10/20/21 08:31 10/20/21 08:31 10/20/21 08:31 Height: 5 ft 10 in Weight (kg): 108.2 kg Body Mass Index: 34.2 BMI Classification: Obese - NPO >8 hours Last Fluid Intake: am prep - Lab Results Lab results reviewed: Yes Home Medications and Allergies Home Medications: Ambulatory Orders Cholecalciferol [Vitamin D3] 1 cap PO DAILY 10/20/21 Cyanocobalamin (Vitamin B-12) [Vitamin B-12] 1 tab PO BID 10/20/21 Multivitamin 1 tab PO BID 10/20/21 Omeprazole 1 cap PO DAILY 10/20/21 tiZANidine [Zanaflex] 1 cap PO DAILY 10/20/21 Aspirin [[place] Aspirin] 81 mg PO DAILY 11/03/20 Atorvastatin [Lipitor] 20 mg PO DAILY PM 11/03/20 Finasteride [Proscar] 5 mg PO DAILY 11/03/20 Lisinopril [Zestril] 40 mg PO DAILY 11/03/20 Tamsulosin [Flomax] 1 cap PO UD 11/03/20 amLODIPine [Norvasc] 5 mg PO BID 11/03/20 Cholecalciferol [Vitamin D3] 1 cap PO DAILY 10/20/21 Cyanocobalamin (Vitamin B-12) [Vitamin B-12] 1 tab PO BID 10/20/21 Multivitamin 1 tab PO BID 10/20/21 Omeprazole 1 cap PO DAILY 10/20/21 tiZANidine [Zanaflex] 1 cap PO DAILY 10/20/21 Allergies/Adverse Reactions: Allergies Allergy/AdvReac Type Severity Reaction Status Date / Time Penicillins Allergy Severe Respiratory Verified 11/24/20 08:51 adhesive tape Allergy Intermediate Unknown Verified 11/24/20 08:51 Anes History & Medical History - Anesthetic History Anesthesia Complications: reports: No previous complications Family history of Anesthesia Complications: Denies Family history of Malignant Hyperthermia: Denies - Medical History Cardiovascular: reports: Hypertension, Coronary artery disease, [place] Pulmonary: reports: None Gastrointestinal: reports: GERD, Colon polyps Urinary: reports: Frequency Neuro: reports: Head injury (1968, no residual post craniotomy for fx of skull) Musculoskeletal: reports: Osteoarthritis, Chronic back pain Endocrine/Autoimmune: reports: None Skin: reports: None Smoking Status: Former smoker Psychosocial: reports: Alcohol, Cannabis ( vape, edible) History of Cancer?: No - Surgical History General: reports: Colonoscopy Cardiothoracic: reports: Coronary stent Neurologic: reports: Craniotomy Orthopedic: reports: Carpal Tunnel surgery Exam General: Alert, Oriented x3, Cooperative Dental: WNL Mouth Opening: Greater than 4 Fingerbreadths Neck Mobility: Normal Mallampati classification: II Thyromental Distance: 4-6 cm Respiratory: Lungs clear, Normal breath sounds, No respiratory distress Cardiovascular: Regular rate Neurological: Normal speech Mental/Cognitive Status: Alert/Oriented X3, Normal for patient Cognitive Status: Within normal limits Plan Anesthesia Type: Total IV Consent for Procedure(s) Verified and Reviewed: Yes Code Status: Attempt Resuscitation ASA classification: 3-Severe systemic disease Is this case an emergency?: No
[2021-10-20] MEDS ORDERED: LIDOCAINE-MPF 2% 5 ML VIAL ONE (09:15)
[2021-10-20] MEDS ORDERED: PROPOFOL 500 MG/50 ML 500 MG/50 ML VIAL ONE (09:15)
[2021-10-20] MEDS ORDERED: LACTATED RINGERS 400 ML IV ONE (10:06)
[2021-10-20 10:33] VITALS: BP 112/60
--- NOTE | 2021-10-20 10:47 | ANESTHESIA POST OP EVALUATION ---
Anesthesia Post Eval - Post Anesthesia Eval Vitals: Last Vital Signs Temp 36.6 C 10/20/21 10:32 Pulse 84 10/20/21 10:32 Resp 18 10/20/21 10:32 BP 112/60 10/20/21 10:32 Pulse Ox 96 10/20/21 10:32 CV Function Including HR & BP: Stable Pain Control: Satisfactory Nausea & Vomiting: Negative Mental Status: Baseline Respiratory Status: Airway Patent Hydration Status: Satisfactory Anesthesia Complications: None
== END 2021-10-20 08:14 | disposition home or self-care (01) ==
LOC: SDS 08:13
PROVIDERS: ATTEND Surgery
DX: Z12.11 Encounter for screening for malignant neoplasm of colon (principal); K57.30 Diverticulosis of large intestine without perforation or abscess without bleeding; K64.8 Other hemorrhoids; E66.9 Obesity, unspecified; Z68.34 Body mass index [BMI] 34.0-34.9, adult; Z87.891 Personal history of nicotine dependence
CPT/HCPCS: G0105; J7120

== ENCOUNTER 2021-11-09 20:12 | Emergency (ER) | payer MEDICARE, MEDICAID ==
[2021-11-09] MEDS ORDERED: PROPARACAINE 0.5% OPHTH DROPS 15 ML EACHEYE STA (20:54)
[2021-11-09] MEDS ORDERED: oxyCODONE 5 MG TABLET PO STA (21:12)
[2021-11-09] MEDS ORDERED: oxyCODONE/ACET 5/325 Prepack 4 PO STA (21:12)
--- NOTE | 2021-11-09 21:16 | ED Physician Documentation ---
PD HPI OPHTHO - Stated complaint Stated Complaint: EYE BURNING - Chief complaint Chief Complaint: Heent - History obtained from History obtained from: Patient, Family - History of Present Illness Timing - onset: How many hours ago (3) Timing - duration: Hours (3) Timing - details: Gradual onset Pain level max: 8 Pain level now: 8 Location: Both Quality / character: Burning, Aching Associated symptoms: Redness, Tearing. No: Discharge, Matting, FB sensation, Photophobia, Decreased vision, Loss of vision Contributing factors: Chemical exposure, base (bleach). No: Wears contacts - Additional information Additional information: Patient is a 71-year-old male who states that he went into the shower tonight after it had been cleaned with Clorox and bleach. He noted a stinging to his eyes. He tried to irrigate his eyes at home but the pain increased. Contacted [employer] control and was told to come here. Review of Systems Constitutional: denies: Fever, Chills GI: denies: Vomiting PD PAST MEDICAL HISTORY - Past Medical History Past Medical History: Yes Cardiovascular: Hypertension, Coronary artery disease, [place] Neuro: Head injury Endocrine/Autoimmune: Other GI: GERD, Colon polyps - Past Surgical History Past Surgical History: Yes Ortho: Carpal Tunnel surgery Cardiovascular: Coronary stent Neuro: Craniotomy - Present Medications Home Medications: Ambulatory Orders Medication Instructions Recorded Confirmed Metoprolol Tartrate [Lopressor] 25 mg PO BID #60 tablet 11/08/12 11/09/21 Aspirin [[place] Aspirin] 81 mg PO DAILY 11/03/20 11/09/21 Atorvastatin [Lipitor] 20 mg PO DAILY PM 11/03/20 11/09/21 Finasteride [Proscar] 5 mg PO DAILY 11/03/20 11/09/21 Lisinopril [Zestril] 40 mg PO DAILY 11/03/20 11/09/21 Tamsulosin [Flomax] 1 cap PO UD 11/03/20 11/09/21 amLODIPine [Norvasc] 5 mg PO BID 11/03/20 11/09/21 HYDROcod/ACETAM 5/325 [[place] 5/325] 1 each PO Q6H PRN #10 tablet 11/19/20 11/09/21 Cholecalciferol [Vitamin D3] 1 cap PO DAILY 10/20/21 11/09/21 Cyanocobalamin (Vitamin B-12) 1 tab PO BID 10/20/21 11/09/21 [Vitamin B-12] Multivitamin 1 tab PO BID 10/20/21 11/09/21 - Allergies Allergies/Adverse Reactions: Allergies Allergy/AdvReac Type Severity Reaction Status Date / Time Penicillins Allergy Severe Respiratory Verified 11/09/21 20:21 adhesive tape Allergy Intermediate Unknown Verified 11/09/21 20:21 - Social History Does the pt smoke?: No Smoking Status: Never smoker Does the pt drink ETOH?: Yes Does the pt have substance abuse?: No PD ED PE NORMAL - Vitals Vital signs reviewed: Yes - General General: Alert and oriented X 3, No acute distress - HEENT HEENT: PERRL, EOMI, Moist mucous membranes, Other (Conjunctival injection bilaterally. Proparacaine resolved his symptoms. Fluorescein stain reveals no uptake. No cloudy cornea. pH of 7 on litmus paper testing bilaterally. Vision is normal.) - Derm Derm: Warm and dry - Neuro Neuro: Alert and oriented X 3 Results - Vitals Vitals: Vital Signs - 24 hr 11/09/21 11/09/21 20:21 21:23 Temperature 37.3 C 37.1 C Heart Rate 106 H 88 Respiratory 21 22 Rate Blood Pressure 161/82 H 141/79 H O2 Saturation 95 98 Oxygen O2 Source Room air PD MEDICAL DECISION MAKING - ED course Complexity details: considered differential, d/w patient ED course: 71-year-old male with a chemical exposure to the eyes. His eyes were irrigated thoroughly prior to arrival and then irrigated again once he was here. Proparacaine was applied, his pH is normal. His symptoms resolved with proparacaine. No fluorescein uptake. No cloudy cornea. Normal vision. He will follow-up with his eye doctor tomorrow. We will prescribe pain medication for tonight. Recommend saline eyedrops at home as well. Patient counseled regarding signs and symptoms for which I believe and urgent re-evaluation would be necessary. Patient with good understanding of and agreement to plan and is comfortable going home at this time This document was made in part using voice recognition software. While efforts are made to proofread this document, sound alike and grammatical errors may occur. 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 You should have your eyes rechecked. You can use artificial tears tonight at home. Placing them in the fridge will help as well. You can use the pain medication as needed tonight. Return if you worsen. I am prescribing a short course of narcotic pain medication for you. These are potentially dangerous and addictive medications that should be used carefully. These medications may constipate you. Take an [id number] stool softener (docusate) twice daily with plenty of water while taking these medications. If you go 24 hours without a bowel movement, take [id number] miralax, per package instructions. Do not drink or drive while taking these medications. If you received narcotic or sedating medications while in the emergency department, do not drive for 24 hours. Store this medication in a safe, secure place and out of reach of children. It is a violation of federal law to give or sell this medication to another rson or to use in a manner other than prescribed. The ED will not refill narcotic prescriptions, including prescriptions lost or stolen. To dispose of unwanted medications: 1. [facility] at [address] in [place] has a medication drop box. They accept prescription medications (in pill form) Tuesday through Tuesday 9:00 a.m. to 5:00 p.m. 2. [facility] [employer] accepts prescription medications (in pill form only) for disposal year round. Call for more information. 3. Contact the [facility] for the next [facility] sponsored prescription drug collection event. , [phone], or [phone]; Discharge Date/Time: 11/09/21 21:30
[2021-11-09 21:25] VITALS: BP 141/79
== END 2021-11-09 21:30 | disposition home or self-care (01) ==
LOC: ED 20:12
DX: Z77.098 Contact with and (suspected) exposure to other hazardous, chiefly nonmedicinal, chemicals (principal)
CPT/HCPCS: 99282; A9270; J3490

== ENCOUNTER 2022-03-08 07:09 | Outpatient (CLI) | payer MEDICARE, MEDICAID ==
[2022-03-08 14:23] LABS: BASOPHILS # (AUTO) 0.1 10^3/uL (0.0-0.1); BASOPHILS % (AUTO) 1.1 %; EOSINOPHILS # (AUTO) 0.4 10^3/uL (0.0-0.7); EOSINOPHILS % (AUTO) 6.8 %; HCT - HEMATOCRIT 45.2 % (42.0-52.0); HGB - HEMOGLOBIN 14.1 g/dL (14.0-18.0); LYMPHOCYTES # (AUTO) 1.5 10^3/uL (1.5-3.5); LYMPHOCYTES % (AUTO) 24.4 %; MEAN CORPUSCULAR HEMOGLOBIN 29.5 pg (27.0-31.0); MEAN CORPUSCULAR HGB CONC 31.2 g/dL (32.0-36.0); MEAN CORPUSCULAR VOLUME 94.6 fL (80.0-94.0); MEAN PLATELET VOLUME 10.6 fL (7.4-11.4); MONOCYTES # (AUTO) 0.7 10^3/uL (0.0-1.0); MONOCYTES % (AUTO) 10.9 %; NEUTROPHILS # (AUTO) 3.5 10^3/uL (1.5-6.6); NEUTROPHILS % (AUTO) 56.5 %; PLT - PLATELET COUNT 234 10^3/uL (130-450); RED BLOOD COUNT 4.78 10^6/uL (4.70-6.10); RED CELL DISTRIBUTION WIDTH 12.4 % (12.0-15.0); WHITE BLOOD COUNT 6.2 x10^3/uL (4.8-10.8)
[2022-03-08 15:30] LABS: ALBUMIN 3.7 g/dL (3.2-5.5); ALBUMIN/GLOBULIN RATIO 1.2 (1.0-2.2); ALKALINE PHOSPHATASE 67 IU/L (42-121); ALT ALANINE AMINOTRANSFERASE 21 IU/L (10-60); AST ASPARTATE AMINOTRANSFERASE 21 IU/L (10-42); BILIRUBIN,TOTAL 0.5 mg/dL (0.2-1.0); BUN - BLOOD UREA NITROGEN 21 mg/dL (6-20); CALCIUM 9.4 mg/dL (8.5-10.3); CARBON DIOXIDE - CO2 30 mmol/L (21-32); CHLORIDE 102 mmol/L (101-111); CHOL/HDL RATIO 4.3 (<5.0); CHOLESTEROL 162 mg/dL; GFR - MDRD 73 (>89); GLUCOSE 121 mg/dL (70-100); HDL CHOLESTEROL 38 mg/dL; LDL CHOLESTEROL,CALCULATED 100 mg/dL; LDL/HDL RATIO 2.6 (<3.6); POTASSIUM 4.2 mmol/L (3.5-5.0); SODIUM 138 mmol/L (135-145); TOTAL PROTEIN 6.9 g/dL (6.7-8.2); TRIGLYCERIDES 120 mg/dL; VLDL CHOLESTEROL 24 mg/dL
[2022-03-08 15:39] LABS: THYROID STIMULATING HORMONE 1.15 uIU/mL (0.34-5.60)
== END 2022-03-08 07:10 | disposition home or self-care (01) ==
LOC: LAB.S 07:09
PROVIDERS: ATTEND Registered Nurse
DX: I10 Essential (primary) hypertension (principal); E78.5 Hyperlipidemia, unspecified; E88.81 Metabolic syndrome and other insulin resistance
CPT/HCPCS: 36415; 80053; 80061; 83721; 84443; 85025

== ENCOUNTER 2022-06-28 13:14 | Outpatient (CLI) | payer MEDICARE, OTHER, MEDICAID ==
[2022-06-28 19:58] LABS: BASOPHILS # (AUTO) 0.1 10^3/uL (0.0-0.1); BASOPHILS % (AUTO) 1.2 %; EOSINOPHILS # (AUTO) 0.5 10^3/uL (0.0-0.7); EOSINOPHILS % (AUTO) 6.9 %; HCT - HEMATOCRIT 44.5 % (42.0-52.0); LYMPHOCYTES # (AUTO) 1.5 10^3/uL (1.5-3.5); LYMPHOCYTES % (AUTO) 21.8 %; MEAN CORPUSCULAR HEMOGLOBIN 28.5 pg (27.0-31.0); MEAN CORPUSCULAR HGB CONC 31.5 g/dL (32.0-36.0); MEAN CORPUSCULAR VOLUME 90.4 fL (80.0-94.0); MEAN PLATELET VOLUME 10.4 fL (7.4-11.4); MONOCYTES # (AUTO) 0.6 10^3/uL (0.0-1.0); NEUTROPHILS # (AUTO) 4.2 10^3/uL (1.5-6.6); NEUTROPHILS % (AUTO) 61.8 %; PLT - PLATELET COUNT 241 10^3/uL (130-450); RED BLOOD COUNT 4.92 10^6/uL (4.70-6.10); RED CELL DISTRIBUTION WIDTH 12.6 % (12.0-15.0); WHITE BLOOD COUNT 6.9 x10^3/uL (4.8-10.8)
[2022-06-28 20:08] LABS: CALCIUM 9.7 mg/dL (8.5-10.3); POTASSIUM 4.4 mmol/L (3.5-5.0)
[2022-06-28 21:56] LABS: ESTIMATED AVERAGE GLUCOSE 137 mg/dL (70-100); HEMOGLOBIN A1c% 6.4 % (4.27-6.07)
== END 2022-06-28 13:15 | disposition home or self-care (01) ==
LOC: LAB.S 13:14
PROVIDERS: ATTEND Orthopaedic Surgery Orthopaedic Surgery of the Spine
DX: Z01.812 Encounter for preprocedural laboratory examination (principal); R73.9 Hyperglycemia, unspecified
CPT/HCPCS: 36415; 80048; 83036; 85025

== ENCOUNTER 2023-03-25 09:35 | Outpatient (CLI) | payer MEDICARE, MEDICAID ==
--- NOTE | 2023-03-25 12:19 | XRAY Report ---
PROCEDURE: Chest 2 View X-Ray INDICATIONS: WALKING PNEUMONIA TECHNIQUE: 2 views of the chest were acquired. COMPARISON: 04/02/2021 FINDINGS: Surgical changes and devices: Interval removal of left chest Port-A-Cath Lungs and pleura: No pleural effusions or pneumothorax. Lungs are clear. Mediastinum: Mediastinal contours appear normal. Heart size is normal. Bones and chest wall: No suspicious bony lesions. Overlying soft tissues appear unremarkable. IMPRESSION: No acute cardiopulmonary process. Reviewed by: Eric Sancehz MD on 03/25/2023 12:17 PM PST Approved by: Eric Sanchez MD on 03/25/2023 12:17 PM PST Station ID: [id number]
== END 2023-03-25 23:59 | disposition home or self-care (01) ==
LOC: DI.S 09:35
PROVIDERS: ATTEND Registered Nurse
DX: J18.9 Pneumonia, unspecified organism (principal)

== ENCOUNTER 2023-06-01 07:18 | Outpatient (CLI) | payer MEDICARE, MEDICAID ==
[2023-06-01 14:33] LABS: BASOPHILS # (AUTO) 0.1 10^3/uL (0.0-0.1); BASOPHILS % (AUTO) 1.3 %; EOSINOPHILS # (AUTO) 0.4 10^3/uL (0.0-0.7); EOSINOPHILS % (AUTO) 5.7 %; HGB - HEMOGLOBIN 14.7 g/dL (14.0-18.0); LYMPHOCYTES # (AUTO) 1.3 10^3/uL (1.5-3.5); LYMPHOCYTES % (AUTO) 19.4 %; MEAN CORPUSCULAR HEMOGLOBIN 28.4 pg (27.0-31.0); MEAN CORPUSCULAR HGB CONC 30.6 g/dL (32.0-36.0); MEAN CORPUSCULAR VOLUME 92.8 fL (80.0-94.0); MEAN PLATELET VOLUME 10.2 fL (7.4-11.4); MONOCYTES # (AUTO) 0.7 10^3/uL (0.0-1.0); NEUTROPHILS # (AUTO) 4.2 10^3/uL (1.5-6.6); NEUTROPHILS % (AUTO) 63.2 %; PLT - PLATELET COUNT 248 10^3/uL (130-450); RED BLOOD COUNT 5.17 10^6/uL (4.70-6.10); RED CELL DISTRIBUTION WIDTH 12.9 % (12.0-15.0); WHITE BLOOD COUNT 6.7 x10^3/uL (4.8-10.8)
[2023-06-01 15:56] LABS: THYROID STIMULATING HORMONE 1.25 uIU/mL (0.34-5.60)
[2023-06-01 15:57] LABS: ALBUMIN/GLOBULIN RATIO 1.5 (1.0-2.2); ALKALINE PHOSPHATASE 68 IU/L (42-121); ALT ALANINE AMINOTRANSFERASE 13 IU/L (10-60); AST ASPARTATE AMINOTRANSFERASE 16 IU/L (10-42); BILIRUBIN,TOTAL 0.5 mg/dL (0.2-1.0); BUN - BLOOD UREA NITROGEN 20 mg/dL (6-20); CALCIUM 9.7 mg/dL (8.5-10.3); CARBON DIOXIDE - CO2 29 mmol/L (21-32); CHLORIDE 104 mmol/L (101-111); CHOL/HDL RATIO 6.1 (<5.0); CHOLESTEROL 208 mg/dL; CREATININE 0.9 mg/dL (0.6-1.3); GFR - MDRD 82 (>89); GLUCOSE 110 mg/dL (74-104); HDL CHOLESTEROL 34 mg/dL; LDL CHOLESTEROL,CALCULATED 109 mg/dL; LDL/HDL RATIO 3.2 (<3.6); POTASSIUM 4.3 mmol/L (3.5-4.5); SODIUM 138 mmol/L (135-145); TOTAL PROTEIN 6.6 g/dL (6.4-8.9); TRIGLYCERIDES 327 mg/dL (48-352); VLDL CHOLESTEROL 65 mg/dL
== END 2023-06-01 07:19 | disposition home or self-care (01) ==
LOC: LAB.S 07:18
PROVIDERS: ATTEND Registered Nurse
DX: E78.5 Hyperlipidemia, unspecified (principal); Z79.899 Other long term (current) drug therapy
CPT/HCPCS: 36415; 80053; 80061; 81599; 83721; 84436; 84443; 84480; 85025

== ENCOUNTER 2023-06-09 10:30 | Outpatient (CLI) | payer MEDICARE, MEDICAID ==
--- NOTE | 2023-06-09 15:52 | XRAY Report ---
PROCEDURE: Shoulder 2+V LT INDICATIONS: LEFT SHOULDER PAIN TECHNIQUE: 3 views of the shoulder were acquired. COMPARISON: Shoulder x-ray 08/10/2021 FINDINGS: Bones: No fractures or dislocations. Rounded sclerosis is present in the proximal humeral shaft unch anged. Visualized ribs appear intact. Moderate acromioclavicular as well as glenohumeral degenerati ve narrowing. Appearance is stable compared to prior exam. Soft tissues: No suspicious soft tissue calcifications. The visualized lungs are within normal limi ts. IMPRESSION: Glenohumeral and acromioclavicular arthritic change. Stable appearance of rounded sclerosis within the proximal humeral diaphysis. It is nonspecific in ap pearance. This may represent a prominent bone island given stability since 2021. Reviewed by: Lorena Holman MD on 06/09/2023 3:51 PM PST Approved by: Lorena Holman MD on 06/09/2023 3:51 PM PST Station ID: [id number]
== END 2023-06-09 10:31 | disposition home or self-care (01) ==
LOC: DI 10:30
PROVIDERS: ATTEND Registered Nurse
DX: M19.012 Primary osteoarthritis, left shoulder (principal); M89.8X1 Other specified disorders of bone, shoulder

== ENCOUNTER 2023-08-04 13:42 | Outpatient (CLI) | payer MEDICARE, MEDICAID ==
--- NOTE | 2023-08-04 23:25 | MRI Report ---
PROCEDURE: Lumbar Spine WO INDICATIONS: SPINAL STENOSIS TECHNIQUE: Noncontrast sagittal T1 spin echo and T2 fast echo, sagittal STIR, axial T1 and T2 fast spin echo thr ough the lumbar spine. In cases with scoliosis, additional coronal T2 fast spin echo may be performe d. COMPARISON: X-ray lumbar spine 07/07/2020, MRI lumbar spine 10/23/2018 FINDINGS: Image quality: Excellent. Alignment and Curvature: There is normal bony alignment. Bone Marrow: Marrow is of normal overall signal. Increased T1 and T2 signal are present at T11 most suggestive of hemangioma. Posterior fusion is present from L3 through S1. No acute vertebral body com pression fractures. Spinal Cord: Conus medullaris terminates at the L1 level. Visualized cord demonstrates normal signa l and size. Paraspinous Soft Tissues: No paravertebral masses. T12-L1: No disc bulge, spinal stenosis or foraminal narrowing. L1-L2: Minimal disc bulge without spinal stenosis. Mild bilateral foraminal narrowing with facet a nd ligamentum flavum hypertrophy. L2-L3: Mild disc bulge with severe spinal stenosis and canal compression. This is progressive comp ared to prior exam. Severe left and moderate right foraminal narrowing with mild compression of the e xiting left L2 nerve roots. L3-L4: Mild disc bulge with moderate spinal stenosis, improved compared to prior exam. Foramina are poorly visualized secondary to hardware artifact is felt to be likely bilateral moderate foraminal n arrowing. L4-L5: Mild disc bulge with minimal canal narrowing, improved compared to prior exam. Foramina are poorly visualized secondary to hardware artifact. However, there is felt to be at least moderate left and [id number] right foraminal narrowing with facet and ligamentum flavum hypertrophy. L5-S1: Minimal disc bulge without spinal stenosis. Mild to moderate bilateral foraminal narrowing w ith facet and ligamentum flavum hypertrophy. IMPRESSION: Severe spinal stenosis with canal compression at L2-3 progressive compared to prior exam. Remaining l evels of significant stenosis L3-4 and L4-5 are improved compared to prior exam. Multilevel foraminal narrowing overall moderate and most prominent at L2-3 secondary to facet/ligamen t flavum arthropathy. Reviewed by: Lorena Holman MD on 08/04/2023 11:24 PM PDT Approved by: Lorena Holman MD on 08/04/2023 11:24 PM PDT Station ID: [id number]
== END 2023-08-04 13:43 | disposition home or self-care (01) ==
LOC: DI 13:42
PROVIDERS: ATTEND Orthopaedic Surgery Orthopaedic Surgery of the Spine
DX: M48.062 Spinal stenosis, lumbar region with neurogenic claudication (principal); M47.816 Spondylosis without myelopathy or radiculopathy, lumbar region

== ENCOUNTER 2023-08-11 15:50 | Outpatient (CLI) | payer MEDICARE, MEDICAID ==
--- NOTE | 2023-08-11 18:10 | CT Report ---
PROCEDURE: Lumbar Spine WO INDICATIONS: LUMBAR STENOSIS TECHNIQUE: Noncontrast 3 mm thick sections acquired from the T12 level to the sacrum. Sagittal and coronal refo rmats were constructed. For radiation dose reduction, the following was used: automated exposure co ntrol, adjustment of mA and/or kV according to patient size. COMPARISON: Lumbar spine MRI dated 08/04/2023.. FINDINGS: Image quality: Excellent. Bones: Again noted is remote posterior lateral stanislav and pedicle screw fixation bilaterally at L3-L5 w ith right hemilaminectomy/facetectomy at L3-L4 and L4-L5. Disc spaces are present at both interspaces . There is no evidence of hardware failure or loosening. There is normal bony alignment. No acute ve rtebral body compression fractures. No suspicious lytic or blastic bony lesions. Central spinal jesu iber is of normal overall caliber. No pars defects. T12-L1: No canal stenosis or foraminal stenosis. L1-L2: No canal stenosis or foraminal stenosis. L2-L3: Disc bulge. Facet and ligament hypertrophy. Moderate to severe canal stenosis. Reference im age 46 of axial series 3. There is left foraminal disc bulge with moderate to severe left foraminal n arrowing and mild impingement on the exiting left L2 nerve root. Right foramen is relatively patent. L3-L4: Posterior lateral fusion and right hemilaminectomy/facetectomy. No stenosis at the disc leve l. No foraminal nerve root impingement. L4-L5: Right hemilaminectomy and facetectomy. Posterior lateral fusion. No canal stenosis. Right fo raminal disc bulge. Severe right foraminal narrowing, well seen on sagittal reconstruction image 31 o f series 7, better appreciated than on the MRI. There is right foraminal L4 nerve root impingement. L5-S1: Disc bulge. No canal stenosis or significant foraminal stenosis. Soft tissues: No retroperitoneal masses or hematomas. Visualized aorta is normal in caliber. IMPRESSION: 1. Evidence of posterior lateral stanislav and pedicle screw fixation from L3 through L5 and right hemilami nectomy/facetectomy at L3-L4 and L4-L5. 2. Expected appearance of orthopedic surgical hardware. No evidence of hardware failure or loosening. 3. As noted on the MRI, there is canal stenosis at L2-L3. It appears moderate to severe. There is als o moderate to severe left foraminal narrowing and mild impingement on the exiting left L2 nerve root. 4. Better appreciated on this CT than on the MRI is severe right foraminal narrowing at L4-L5 with ri ght foraminal L4 nerve root impingement. Reviewed by: Eric Sanchez MD on 08/11/2023 6:09 PM PDT Approved by: Eric Sanchez MD on 08/11/2023 6:09 PM PDT Station ID: [id number]
== END 2023-08-11 15:51 | disposition home or self-care (01) ==
LOC: DI 15:50
PROVIDERS: ATTEND Orthopaedic Surgery Orthopaedic Surgery of the Spine
DX: M48.062 Spinal stenosis, lumbar region with neurogenic claudication (principal)

== ENCOUNTER 2023-08-25 10:26 | Outpatient (CLI) | payer MEDICARE, MEDICAID ==
[2023-08-25 10:43] LABS: BASOPHILS # (AUTO) 0.1 10^3/uL (0.0-0.1); BASOPHILS % (AUTO) 1.2 %; EOSINOPHILS # (AUTO) 0.3 10^3/uL (0.0-0.7); EOSINOPHILS % (AUTO) 4.2 %; HCT - HEMATOCRIT 46.9 % (42.0-52.0); HGB - HEMOGLOBIN 14.4 g/dL (14.0-18.0); LYMPHOCYTES # (AUTO) 1.3 10^3/uL (1.5-3.5); LYMPHOCYTES % (AUTO) 21.6 %; MEAN CORPUSCULAR HEMOGLOBIN 28.4 pg (27.0-31.0); MEAN CORPUSCULAR HGB CONC 30.7 g/dL (32.0-36.0); MEAN CORPUSCULAR VOLUME 92.5 fL (80.0-94.0); MEAN PLATELET VOLUME 9.3 fL (7.4-11.4); MONOCYTES # (AUTO) 0.5 10^3/uL (0.0-1.0); MONOCYTES % (AUTO) 8.8 %; NEUTROPHILS # (AUTO) 3.8 10^3/uL (1.5-6.6); NEUTROPHILS % (AUTO) 63.9 %; PLT - PLATELET COUNT 250 10^3/uL (130-450); RED BLOOD COUNT 5.07 10^6/uL (4.70-6.10); RED CELL DISTRIBUTION WIDTH 11.9 % (12.0-15.0)
[2023-08-25 10:55] LABS: CALCIUM 10.3 mg/dL (8.5-10.3); CREATININE 0.9 mg/dL (0.6-1.3); POTASSIUM 4.3 mmol/L (3.5-4.5)
[2023-08-25 11:57] LABS: ESTIMATED AVERAGE GLUCOSE 143 mg/dL (70-100); HEMOGLOBIN A1c% 6.6 % (4.27-6.07)
== END 2023-08-25 10:27 | disposition home or self-care (01) ==
LOC: LAB 10:26
PROVIDERS: ATTEND Orthopaedic Surgery Orthopaedic Surgery of the Spine
DX: Z01.818 Encounter for other preprocedural examination (principal); R73.9 Hyperglycemia, unspecified
CPT/HCPCS: 36415; 80048; 83036; 85025; 93005